=== PATIENT | female | born 2000 | race Caucasian/White ===

== ENCOUNTER 2019-03-25 20:26 | Emergency (ER) | payer OTHER ==
[2019-03-25 21:43] LABS: ABS Basophils 0.1 10^3/ul (0-0.2); ABS Eosinophils 0.1 10^3/ul (0-0.6); ABS Monocytes 0.6 10^3/ul (0-0.8); ABS Neutrophils 5.9 10^3/ul (1.5-7.7); Eosinophil % 1.2 %; Hematocrit 41 % (35-47); Hemoglobin 13.8 g/dL (12.0-16.0); Lymphocyte % 31.2 %; Mean Corpuscular HGB Conc 34 g/dL (31-36); Mean Corpuscular Hemoglobin 29 pg (27-31); Mean Corpuscular Volume 85 fL (80-97); Mean Platelet Volume 7.8 fL (7.4-10.4); Nucleated Red Blood Cells % 0.1; Platelet Count 315 10^3/uL (150-450); Red Blood Count 4.82 10^6 /uL (3.70-4.87); Red Cell Distribution Width 13 % (10.5-15); White Blood Count 9.7 10^3/uL (3.5-10.8)
[2019-03-25 22:00] LABS: ALT 17 U/L (7-52); AST 18 U/L (13-39); Albumin 4.8 g/dL (3.2-5.2); Albumin/Globulin Ratio 1.5 (1-3); Alkaline Phosphatase 69 U/L (34-104); Anion Gap 6 mmol/L (2-11); BUN/Creatinine Ratio 23.7 (8-20); Blood Urea Nitrogen 14 mg/dL (6-24); CO2 Carbon Dioxide 29 mmol/L (22-32); Calcium 9.9 mg/dL (8.6-10.3); Chloride 105 mmol/L (101-111); EGFR African American 157.2 (>60); EGFR Non-African American 129.9 (>60); Globulin 3.3 g/dL (2-4); Glucose 84 mg/dL (70-100); Potassium 3.8 mmol/L (3.5-5.0); Sodium 140 mmol/L (135-145); Total Protein 8.1 g/dL (6.4-8.9)
[2019-03-25 22:07] LABS: HCG Pregnancy < 0.60 mIU/mL
[2019-03-26 00:13] VITALS: BP 139/76
--- NOTE | 2019-03-26 00:15 | ED ---
GI/ HPI - HPI Summary HPI Summary: Patient is a 18 y/o F presenting to ED with complaints of excessive vaginal bleeding. Sx onset today and progressively worsened throughout the day. Patient endorses some light-headedness and notes that she has been passing clots. Pain is denied. Patient is sexually active and does not use protection, she is not on control as well. Patient believes she is not . LNMP was two weeks ago. 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 On triage, pain is denied, nothing is noted to aggravate/alleviate Sx. Home medications and allergies are reviewed. - History of Current Complaint Chief Complaint: EDVaginalBleeding Time Seen by Provider: 03/25/19 23:00 Stated Complaint: EXTREME BLEEDING PER PT Hx Obtained From: Patient Onset/Duration: Started Hours Ago, Still Present, Worse Since Timing: Constant, Lasting Hours Current Severity: None - pain denied Pain Intensity: 0 Associated Signs and Symptoms: Positive: Other: - light-headedness Additional Signs & Symptoms: Positive: Vaginal Bleeding Aggravating Factor(s): Nothing Alleviating Factor(s): Nothing - Allergy/Home Medications Allergies/Adverse Reactions: Allergies Allergy/AdvReac Type Severity Reaction Status Date / Time Adhesive Tape Allergy Itching Verified 03/25/19 20:35 PMH/Surg Hx/FS Hx/Imm Hx Sensory History: Denies: Hx Legally Blind, Hx Deafness Opthamlomology History: Denies: Hx Legally Blind EENT History: Denies: Hx Deafness Neurological History: Reports: Other Neuro Impairments/Disorders - spinal cord stroke at age 10 Infectious Disease History: No Infectious Disease History: Denies: Traveled Outside the [place] in Last 30 Days - Family History Known Family History: Negative: Hypertension - Social History Alcohol Use: None Substance Use Type: Reports: None Smoking Status (MU): Never Smoked Tobacco Review of Systems Constitutional: Other - POSITIVE - LIGHT-HEADEDNESS Genitourinary: Other - POSITIVE - VAGINAL BLEEDING All Other Systems Reviewed And Are Negative: Yes Physical Exam - Summary Physical Exam Summary: Appearance: Well-appearing, Well-nourished, lying in bed comfortably Skin: Warm, dry, no obvious rash Eyes: sclera anicteric, no conjunctival pallor ENT: mucous membranes moist, pharynx appears normal Neck: Supple, nontender Respiratory: Clear to auscultation, no signs of respiratory distress Cardiovascular: Normal S1, S2. No murmurs. Normal distal pulses in tibial and radial bilaterally. Abdomen: Soft, nontender, normal active bowel sounds present Musculoskeletal: Normal, Strength/ROM Intact Neurological: A&Ox3, awake and alert, mentation is normal, speech is fluent and appropriate Psychiatric: affect is normal, does not appear anxious or depressed Triage Information Reviewed: Yes Vital Signs On Initial Exam: Initial Vitals Temp Pulse Resp BP Pulse Ox 99.5 F 96 18 140/91 100 03/25/19 20:35 03/25/19 20:35 03/25/19 20:35 03/25/19 20:35 03/25/19 20:35 Vital Signs Reviewed: Yes Diagnostics - Vital Signs Vital Signs Temp Pulse Resp BP Pulse Ox 03/26/19 00:12 98.9 F 89 18 139/76 99 03/25/19 20:35 99.5 F 96 18 140/91 100 - Laboratory Lab Results: Lab Results 03/25/19 03/25/19 03/25/19 Range/Units 21:34 21:34 21:34 WBC 9.7 (3.5-10.8) 10^3/uL RBC 4.82 (3.70-4.87) 10^6 /uL Hgb 13.8 (12.0-16.0) g/dL Hct 41 (35-47) % MCV 85 (80-97) fL MCH 29 (27-31) pg MCHC 34 (31-36) g/dL RDW 13 (10.5-15) % Plt Count 315 (150-450) 10^3/uL MPV 7.8 (7.4-10.4) fL Neut % (Auto) 60.9 % Lymph % (Auto) 31.2 % [place] % (Auto) 6.0 % Eos % (Auto) 1.2 % Baso % (Auto) 0.7 % Absolute Neuts (auto) 5.9 (1.5-7.7) 10^3/ul Absolute Lymphs (auto) 3.0 (1.0-4.8) 10^3/ul Absolute Monos (auto) 0.6 (0-0.8) 10^3/ul Absolute Eos (auto) 0.1 (0-0.6) 10^3/ul Absolute Basos (auto) 0.1 (0-0.2) 10^3/ul Absolute Nucleated RBC 0.0 10^3/ul Nucleated RBC % 0.1 Sodium 140 (135-145) mmol/L Potassium 3.8 (3.5-5.0) mmol/L Chloride 105 (101-111) mmol/L Carbon Dioxide 29 (22-32) mmol/L Anion Gap 6 (2-11) mmol/L BUN 14 (6-24) mg/dL Creatinine 0.59 (0.51-0.95) mg/dL Est GFR ( Amer) 157.2 (>60) Est GFR (Non-Af Amer) 129.9 (>60) BUN/Creatinine Ratio 23.7 H (8-20) Glucose 84 (70-100) mg/dL Calcium 9.9 (8.6-10.3) mg/dL Total Bilirubin 0.40 (0.2-1.0) mg/dL AST 18 (13-39) U/L ALT 17 (7-52) U/L Alkaline Phosphatase 69 (34-104) U/L Total Protein 8.1 (6.4-8.9) g/dL Albumin 4.8 (3.2-5.2) g/dL Globulin 3.3 (2-4) g/dL Albumin/Globulin Ratio 1.5 (1-3) Beta HCG, Quant < 0.60 mIU/mL Blood Type O Positive Antibody Screen Negative Result Diagrams: 03/25/19 21:34 03/25/19 21:34 Lab Statement: Any lab studies that have been ordered have been reviewed, and results considered in the medical decision making process. GIGU Course/Dx - Course Course Of Treatment: Patient is a 18 y/o F presenting to ED with complaints of excessive vaginal bleeding. Sx onset today and progressively worsened throughout the day. Patient endorses some light-headedness and notes that she has been passing clots. Pain is denied. Patient is sexually active and does not use protection, she is not on control as well. Patient believes she is not . LNMP was two weeks ago. Physical exam is unremarkable. Labs showed BUN/creatinine ratio 23.7, Beta HCG < 0.6. Labs discussed with patient as well as possible reasons for patient's Sx. She will be discharged to home and is advised to follow up with OBGYN if Sx do not improve, patient is agreeable with this. - Diagnoses Provider Diagnoses: Menorrhagia Discharge - Sign-Out/Discharge Documenting (check all that apply): Patient Departure - discharge Patient Received Moderate/Deep Sedation with Procedure: No - Discharge Plan Condition: Good Disposition: HOME Patient Education Materials: Menorrhagia (ED) Referrals: Reid Lopez MD [Medical Doctor] - 3 Days (if not better) - Billing Disposition and Condition Condition: GOOD Disposition: Home - Attestation Statements Document Initiated by Charlotteibe: Yes Documenting Scribe: AALIYAH HOPE Provider For Whom Jimmie is Documenting (Include Credential): NEENA ADKINS MD Scribe Attestation: AALIYAH Shelton, scribed for NEENA ADKINS MD on 03/26/19 at 0643. Scribe Documentation Reviewed: Yes Provider Attestation: The documentation as recorded by the AALIYAH bryson accurately reflects the service I personally performed and the decisions made by me, NEENA ADKINS MD Status of Scribe Document: Viewed
== END 2019-03-26 00:12 | disposition home or self-care (01) ==
LOC: ED 20:26
DX: N92.0 Excessive and frequent menstruation with regular cycle (principal); R42 Dizziness and giddiness; Z32.02 Encounter for pregnancy test, result negative; Z86.69 Personal history of other diseases of the nervous system and sense organs; Z91.048 Other nonmedicinal substance allergy status
CPT/HCPCS: 36415; 80053; 84702; 85025; 86850; 86900; 86901; 99282